=== PATIENT | female | born 1980 | race Asian ===

== ENCOUNTER 2016-12-01 18:50 | Emergency (ER) | payer OTHER ==
[2016-12-01 18:59] LABS: INFLUENZA A NEG (NEG); INFLUENZA B NEG (NEG)
== END 2016-12-01 20:45 | disposition home or self-care (01) ==
LOC: CFTX 18:50
PROVIDERS: Nurse Practitioner
DX: J02.0 Streptococcal pharyngitis (principal); R50.9 Fever, unspecified
CPT/HCPCS: 87804; 87880; 96372; 99283; J0561